=== PATIENT | male | born 1990 | race Caucasian/White ===

== ENCOUNTER 2024-06-04 20:38 | Emergency (ER) | payer OTHER ==
[~2024-06-04] VITALS: Ht 170.1 cm; Wt 93.0 kg
[2024-06-04 22:04] LABS: HEMATOCRIT 52.5 % (42.0-52.0); MEAN CELL VOLUME 92.4 fl (80.0-94.0); MEAN CORPUSCULAR HGB 29.9 pg (27.0-31.0); MEAN CORPUSCULAR HGB CONC 32.4 g/dl (33.0-37.0); MEAN PLATELET VOLUME 9.8 fl (9.6-12.3); PLATELET COUNT AUTOMATED 265 10*3/uL (130-400); RED BLOOD COUNT 5.68 10*6/uL (4.50-5.90); WHITE BLOOD COUNT 14.3 10*3/uL (4.8-10.8)
[2024-06-04 22:05] LABS: MANUAL DIFF REFLEX YES
[2024-06-04] MEDS ORDERED: SODIUM CHLORIDE 0.9% 1,000 ML IV SCH (22:15)
[2024-06-04 22:22] LABS: BUN 7 mg/dl (9-23); CHLORIDE 106 mmol/L (98-107); POTASSIUM 3.7 mmol/L (3.4-5.1)
[2024-06-04 22:25] LABS: PLATELET SUFFICIENCY NORMAL (NORMAL); TOTAL CELLS COUNTED 100 #CELLS
[2024-06-04] MEDS ORDERED: Dexamethasone Sodium Phospha 20 MG/5 ML VIAL IM ONE (23:25)
[2024-06-04] MEDS ORDERED: LIDOCAINE 1 EA PATCH T ONE (23:30)
[2024-06-04] MEDS ORDERED: Cyclobenzaprine Hydrochlorid 10 MG TAB PO ONE (23:30)
[2024-06-04] MEDS ORDERED: CYCLOBENZAPRINE5 M3 PO (23:32)
[2024-06-04] MEDS ORDERED: LIDOCAINE PAIN1 EACH T (23:32)
== END 2024-06-04 23:41 | disposition home or self-care (01) ==
LOC: ED 20:38
PROVIDERS: Internal Medicine
DX: M62.830 Muscle spasm of back (principal); M54.50 Low back pain, unspecified; R20.0 Anesthesia of skin; Z91.041 Radiographic dye allergy status; Z88.6 Allergy status to analgesic agent; Z88.5 Allergy status to narcotic agent; Z88.8 Allergy status to other drugs, medicaments and biological substances

== ENCOUNTER 2024-10-22 16:34 | Emergency (ER) | payer OTHER ==
[~2024-10-22] VITALS: Ht 170.1 cm; Wt 95.3 kg
[~2024-10-22 16:34] MED LIST: CYCLOBENZAPRINE5 M3 PO; LIDOCAINE PAIN1 EACH T
[2024-10-22] MEDS ORDERED: Ondansetron Hydrochloride 4 MG/2 ML VIAL IV ONE ×2 (17:10→19:30)
[2024-10-22] MEDS ORDERED: SODIUM CHLORIDE 0.9% 1,000 ML IV ONE (17:10)
[2024-10-22 17:23] LABS: BASO # 0.0 10*3/uL (0.0-0.1); BASO % 0.4 % (0.0-1.0); EOS # 0.1 10*3/uL (0.0-0.4); EOS % 0.8 % (1.0-4.0); MEAN CELL VOLUME 92.3 fl (80.0-94.0); MEAN CORPUSCULAR HGB 30.0 pg (27.0-31.0); MEAN PLATELET VOLUME 10.0 fl (9.6-12.3); MONO # 1.2 10*3/uL (0.1-1.0); MONO % 11.5 % (3.0-9.0); NEUT # 7.0 10*3/uL (2.3-7.9); NEUT % 67.7 % (47.0-73.0); NUCLEATED RED BLOOD CELL 0.0 % (0.0-0.0); NUCLEATED RED BLOOD CELL 0.0 10*3/uL (0.0-0.0); PLATELET COUNT AUTOMATED 241 10*3/uL (130-400); RED CELL DISTRI WIDTH 12.9 % (0-14.5)
[2024-10-22 17:45] LABS: BUN 9 mg/dl (9-23); SGPT/ALT 51 U/L (5-49)
[2024-10-22 18:16] LABS: BILIRUBIN Negative (Negative); BLOOD 3+ (Negative); CLARITY Clear (Clear); COLOR Yellow (Yellow); KETONE Negative (Negative); LEUKO ESTERASE Negative (Negative); NITRITE Negative (Negative); PH 6.0 (4.5-8.0); SPECIFIC GRAVITY 1.015 (1.001-1.030); UROBILINOGEN 0.2 E.U./dl (0.0-1.0)
[2024-10-22 18:25] LABS: WBC 0-2 wbc/hpf (0-5)
[2024-10-22 18:26] LABS: BACTERIA TRACE; MUCOUS TRACE
[2024-10-22] MEDS ORDERED: HYDROCODONE-AC1 EACH PO (19:30)
[2024-10-22] MEDS ORDERED: Ondansetron4 MG PO (19:30)
[2024-10-22] MEDS ORDERED: FLOMAX0.4 MG PO (19:30)
[2024-10-22] MEDS ORDERED: Acetaminophen/Hydrocodone 5 MG/325 MG TABLET PO ONE (19:30)
== END 2024-10-22 19:36 | disposition home or self-care (01) ==
LOC: ED 16:34
PROVIDERS: Nurse Practitioner Family
DX: N20.0 Calculus of kidney (principal); R31.9 Hematuria, unspecified; R11.2 Nausea with vomiting, unspecified; Z91.041 Radiographic dye allergy status; Z88.6 Allergy status to analgesic agent; Z88.5 Allergy status to narcotic agent; Z88.8 Allergy status to other drugs, medicaments and biological substances; Z79.899 Other long term (current) drug therapy